=== PATIENT | female | born 1990 | race Caucasian/White ===

== ENCOUNTER 2017-02-21 11:42 | Emergency (ER) | payer OTHER ==
--- NOTE | ~2017-02-21 | CT2 ---
[facility] A Service of [facility] RADIOLOGY TEXT RESULTS PATIENT: WINNIE VELEZ LOCATION: [facility] : [birth year] UNIT #: [id number] AGE: [address]: Harshad Marks MD SEX: F ORDER DR: [id number] [facility] [address] [place], [place] [address] [id number] MR#: [id number] Acc #: [id number] NAME: WINNIE VELEZ : 1990 SEX: F STUDY DATE/TIME: 02/21/2017 16:08 UNIT: [facility] ROOM: STUDY DESCRIPTION: CT Abd and Pelv W Cont Attending Physician: Harshad Marks M.D. Ordering Physician: Harshad Marks M.D. Primary Care Physician: No Primary Care Physician MEDICAL IMAGING REPORT This report is preliminary unless electronic signature is present EXAM CT abdomen and pelvis with contrast, 02/21/17. HISTORY 27-year-old female in the ED complaining of 3-month history of abdomen pain and lower pelvic pain. TECHNIQUE CT examination of the abdomen and pelvis was performed with IV contrast. GI contrast material was not ordered. This CT exam was performed with one or more of the following radiation dose reduction techniques: automatic exposure control, adjustment of mA and/or kV according to patient size, and iterative reconstruction. FINDINGS ABDOMEN FINDINGS: Liver, pancreas, spleen and kidneys are normal in size and appearance. Nondistended gallbladder. No bile duct dilatation. Small bowel and colon are normal in caliber and appearance, as imaged. The appendix is normal. The stomach is nondistended. 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 Both ovaries are negative. The bladder is normal. There is some soft tissue stranding within perirectal fat in the region of the cul-de-sac. Mild rectal wall thickening. Findings may represent mild rectal inflammation. There is no evidence of abscess or other fluid collection. IMPRESSION 1. Mild soft tissue stranding anterior to the rectum in the pelvic cul-de-sac. This could be secondary to mild rectal inflammation. No evidence of abscess, bowel perforation or bowel obstruction. STS. [facility] A Service of [facility] RADIOLOGY TEXT RESULTS PATIENT: WINNIE VELEZ LOCATION: [facility] #: [id number] : [birth year] UNIT #: [id number] AGE: [address]: Harshad Marks MD SEX: F ORDER DR: Remaining segments of the colon appear normal without GI contrast. The appendix is normal. 2. The remainder of the examination is negative. 3. Incidentally noted probable congenital bicornuate uterus. Dictated by... Mike Bhardwaj M.D. THIS IS AN ELECTRONICALLY VERIFIED REPORT Mike Bhardwaj M.D. at 02/22/2017 4:35 PM SILVER/racheal TD: 02/21/2017 22:11 JOB #: [id number] MEDICAL IMAGING REPORT Page 1 of 1 COPY
[~2017-02-21 11:42] MED LIST: ANSAID100 MG PO; KEFLEX500 MG PO; LORTAB 5/500 TA1 TA1 PO; NAPROXEN PO; PROVERA10 MG PO
[2017-02-21 13:36] LABS: URINE SOURCE CLEAN CATCH
[2017-02-21 13:42] LABS: BASOPHIL# 0.1 X10e3 (0-0.3); BASOPHIL% 0.7 % (0-2.5); EOSINOPHIL# 0.2 X10e3 (0-0.7); EOSINOPHIL% 2.2 % (0.0-7.0); HEMATOCRIT 43.5 % (35.0-45.0); HEMOGLOBIN 14.3 gm/dL (12.0-16.0); LYMPHOCYTE# 1.7 X10e3 (1.0-3.5); MEAN CELL VOLUME 94.8 FL (83-96); MEAN CORPUSCULAR HEMOGLOBIN 31.1 PG (28-34); MEAN CORPUSCULAR HGB CONC 32.8 g/dL (30-36); MEAN PLATELET VOLUME 9.5 FL (6.5-11.5); MONOCYTE# 0.6 X10e3 (0-1.0); NEUTROPHIL# 4.5 X10e3 (1.5-7.1); NEUTROPHIL% 65.1 % (40-75); PLATELET COUNT 216 X10e3 (140-420); RED BLOOD COUNT 4.59 X10e (3.90-5.30); RED CELL DISTRIBUTION WIDTH 13.1 % (11.0-15.5); WHITE BLOOD COUNT 6.9 X10e3 (4.0-10.5)
[2017-02-21 13:44] LABS: DIFF IND NO
[2017-02-21 13:45] LABS: URINE APPEARANCE CLOUDY; URINE BILIRUBIN NEG (NEG); URINE BLOOD NEG (NEG); URINE COLOR YELLOW; URINE GLUCOSE NEG (NEG); URINE KETONE NEG (NEG); URINE LEUKOCYTE ESTERASE 1+ (NEG); URINE NITRATE POS (NEG); URINE PROTEIN NEG (NEG); URINE SPECIFIC GRAVITY 1.022 (1.003-1.035)
[2017-02-21 13:48] LABS: CULTURE INDICATED? YES; U HYALINE CASTS AUWI 0-2 /[LPF]; URBCS1 AUWI 0-2 /[HPF] (0-2); URINE BACTERIA AUWI 4+ (NEGATIVE); URINE SQUAMOUS EPITHELIAL CELL NONE SEEN /[HPF]
[2017-02-21 14:16] LABS: ALBUMIN SERUM 3.8 g/dL (3.5-5.0); BILIRUBIN, DIRECT 0.1 mg/dL (0.0-0.2); BILIRUBIN,INDIRECT 0.6 mg/dL (0.0-0.9); BILIRUBIN,TOTAL 0.7 mg/dL (0.2-2.0); BUN/CREATININE RATIO 12.85; CALCIUM SERUM 9.1 mg/dL (8.4-10.2); CREATININE SERUM 0.7 mg/dL (0.6-1.4); GLOM FILT RATE Estimated 119.6 mL/min (>60); POTASSIUM 3.6 mmol/L (3.5-5.1); PROTEIN TOTAL SERUM 6.9 g/dL (6.0-8.3)
== END 2017-02-21 17:29 | disposition home or self-care (01) ==
LOC: CED 11:42
PROVIDERS: Emergency Medicine
DX: R10.9 Unspecified abdominal pain (principal); F17.200 Nicotine dependence, unspecified, uncomplicated; Z88.2 Allergy status to sulfonamides; Z88.8 Allergy status to other drugs, medicaments and biological substances
CPT/HCPCS: 36415; 74177; 80048; 80076; 81003; 82150; 83690; 84703; 85025; 87086; 87088; 87186; 96361; 96372; 96374; 99284; J0500; J2405; Q9967

== ENCOUNTER 2017-03-02 14:23 | Emergency (ER) | payer OTHER | END 2017-03-02 16:55 | disposition home or self-care (01) | LOC: CFTX 14:23 → CED 14:23 → CFTX 16:38 | DX: N39.0 Urinary tract infection, site not specified (principal); F17.210 Nicotine dependence, cigarettes, uncomplicated; Z88.2 Allergy status to sulfonamides; Z88.8 Allergy status to other drugs, medicaments and biological substances | CPT/HCPCS: 99283 ==

== ENCOUNTER 2017-05-27 22:28 | Emergency (ER) | payer OTHER ==
[~2017-05-27] VITALS: Ht 167.6 cm; Wt 104.3 kg
[2017-05-27 23:20] LABS: URINE SOURCE CLEAN CATCH
[2017-05-27 23:30] LABS: URINE APPEARANCE CLEAR; URINE BILIRUBIN NEG (NEG); URINE BLOOD NEG (NEG); URINE COLOR YELLOW; URINE GLUCOSE NEG (NEG); URINE KETONE NEG (NEG); URINE LEUKOCYTE ESTERASE NEG (NEG); URINE NITRATE NEG (NEG); URINE PH 5.5 (5-8); URINE PROTEIN NEG (NEG); URINE SPECIFIC GRAVITY 1.025 (1.003-1.035)
[2017-05-27 23:38] LABS: CULTURE INDICATED? NO
[2017-05-29 22:16] LABS: CHLAMYDIA TRACH Not Detected (Not Detected); N GONOR Detected (Not Detected)
== END 2017-05-28 00:58 | disposition home or self-care (01) ==
LOC: CFTX 22:28 → CED 22:28 → CFTX 23:39
PROVIDERS: Nurse Practitioner Family
DX: S31.41XA Laceration without foreign body of vagina and vulva, initial encounter (principal); N93.8 Other specified abnormal uterine and vaginal bleeding; F17.210 Nicotine dependence, cigarettes, uncomplicated; Z88.2 Allergy status to sulfonamides; Z98.51 Tubal ligation status; X58.XXXA Exposure to other specified factors, initial encounter
CPT/HCPCS: 81003; 84703; 87491; 87591; 87808; 87905; 99284

== ENCOUNTER 2017-06-01 18:21 | Emergency (ER) | payer OTHER ==
[~2017-06-01] VITALS: Ht 170.2 cm; Wt 104.3 kg
== END 2017-06-01 19:40 | disposition home or self-care (01) ==
LOC: CFTX 18:21 → CED 18:21 → CFTX 19:08
DX: Z20.2 Contact with and (suspected) exposure to infections with a predominantly sexual mode of transmission (principal); Z98.51 Tubal ligation status; F17.210 Nicotine dependence, cigarettes, uncomplicated; Z88.2 Allergy status to sulfonamides
CPT/HCPCS: 96372; 99284; J0696